=== PATIENT | female | born 1995 | race Asian ===

== ENCOUNTER 2017-11-21 21:44 | Emergency (ER) | payer BC, OTHER ==
--- NOTE | 2017-11-21 22:04 | EDM.PDOC ---
ED HPI GENERAL MEDICAL PROBLEM - General Stated Complaint: POSSIBLE MISCARRIAGE PER PT Time Seen by Provider: 11/21/17 22:02 - Related Data Allergies Allergy/AdvReac Type Severity Reaction Status Date / Time No Known Allergies Allergy Verified 11/21/17 21:54 Home Meds: Home Meds NK [No Known Home Meds] 11/21/17 [History] Course - Vital Signs Last Recorded V/S: Last Vital Signs Temp 36.7 C 11/21/17 21:45 Pulse 85 11/21/17 21:45 Resp 16 11/21/17 21:45 BP 121/70 11/21/17 21:45 Pulse Ox 100 11/21/17 21:45 Departure - Departure Condition: Good - Discharge Information Referrals: PCP,None [Primary Care Provider] -
--- NOTE | 2017-11-21 23:02 | EDM.PDOC ---
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, no dysuria, no lower abd pain went to [facility] in [place] 1w ago, urine test done, u/s done, no blood work, dx with preg at 6w gestation LMP 09-26-17 with usual 4d flow, no bleeding since until today, no BC in past yr , monthly menses, never missed previously, no breakthrough bleeding here with mother and friend has f/u apt at [facility] the wk of December, 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 apt with 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 substance abuse in [place] on 12/20 had pap test 3-4y ago that was neg no previous 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 Pain Score (Numeric/FACES): 7 - Related Data Allergies Allergy/AdvReac Type Severity Reaction Status Date / Time No Known Allergies Allergy Verified 11/21/17 21:54 Home Meds: Home Meds NK [No Known Home Meds] 11/21/17 [History] Past Medical History Other OB/BYN History: Social & Family History - Family History Family Medical History: Noncontributory - Tobacco Use Smoking Status *Q: Never Smoker - Caffeine Use Caffeine Use: Reports: Soda - Recreational Drug Use Recreational Drug Use: No ED ROS GENERAL - Review of Systems Review Of Systems: See Below Constitutional: Reports: No Symptoms HEENT: Reports: No Symptoms Respiratory: Reports: No Symptoms Cardiovascular: Reports: No Symptoms Endocrine: Reports: No Symptoms GI/Abdominal: Reports: Abdominal Pain : Reports: Other (blood on toilet paper) Musculoskeletal: Reports: No Symptoms Skin: Reports: No Symptoms Neurological: Reports: No Symptoms Psychiatric: Reports: No Symptoms Hematologic/Lymphatic: Reports: No Symptoms Immunologic: Reports: No Symptoms ED EXAM - Physical Exam Exam: See Below Exam Limited By: No Limitations General Appearance: Alert, WD/WN, No Apparent Distress Ears: Normal External Exam Nose: Normal Inspection, Normal Mucosa, No Blood Throat/Mouth: Normal Inspection, Normal Lips, Normal Teeth, Normal Gums, Normal Oropharynx, Normal Voice, No Airway Compromise Head: Atraumatic, Normocephalic Neck: Normal Inspection, Supple, Non-Tender, Full Range of Motion Respiratory/Chest: No Respiratory Distress, Lungs Clear, Normal Breath Sounds, No Accessory Muscle Use, Chest Non-Tender Cardiovascular: Regular Rate, Rhythm, No Edema, No Gallop, No JVD, No Murmur, No Rub GI/Abdominal Exam: Other (NT across lower abd, NT at flanks, 1+ tender at Kelley 's point with deep breath, slight tender at epigastric area, soft, ND, no HSM, no mass) Back Exam: Normal Inspection, Full Range of Motion. No: CVA Tenderness (R), CVA Tenderness (L) Extremities: Normal Inspection, Normal Range of Motion, Non-Tender, No Pedal Edema Neurological: Alert, Oriented, CN II-XII Intact, Normal Cognition, No Motor/ Sensory Deficits Psychiatric: Normal Affect, Normal Mood Skin Exam: Warm, Dry, Intact, Normal Color, No Rash Lymphatic: No Adenopathy Course - Vital Signs Last Recorded V/S: Last Vital Signs Temp 36.7 C 11/21/17 21:45 Pulse 85 11/21/17 21:45 Resp 16 11/21/17 21:45 BP 121/70 11/21/17 21:45 Pulse Ox 100 11/21/17 21:45 - Orders/Labs/Meds Orders: Active Orders 24 hr Category Date Time Status CHLAMYDIA,AND GC BY APTIMA Stat Lab 11/21/17 23:38 Ordered CULTURE GENITAL [RM] Stat Lab 11/21/17 23:38 Ordered Labs: Laboratory Tests 11/21/17 11/21/17 11/21/17 Range/Units 22:00 22:00 22:20 WBC 15.0 H (4.5-12.0) X10-3/uL RBC 4.75 (3.23-5.20) x10(6)uL Hgb 13.2 (11.5-15.5) g/dL Hct 39.4 (30.0-51.3) % MCV 83.0 (80-96) fL MCH 27.8 (27.7-33.6) pg MCHC 33.5 (32.2-35.4) g/dL RDW 13.3 (11.5-15.5) % Plt Count 445 H (125-369) X10(3)uL MPV 8.4 (7.4-10.4) fL Neut % (Auto) 77.9 (46-82) % Lymph % (Auto) 16.8 (13-37) % Desha % (Auto) 4.3 (4-12) % Eos % (Auto) 1 (1.0-5.0) % Baso % (Auto) 0 (0-2) % Neut # (Auto) 11.8 H (1.6-8.3) # Lymph # (Auto) 2.5 (0.6-5.0) # Desha # (Auto) 0.6 (0.0-1.3) # Eos # (Auto) 0.1 (0.0-0.8) # Baso # (Auto) 0.0 (0.0-0.2) # Sodium 140 (135-145) mmol/L Potassium 3.7 (3.5-5.3) mmol/L Chloride 104 (100-110) mmol/L Carbon Dioxide 26 (21-32) mmol/L BUN 8 (7-18) mg/dL Creatinine 0.7 (0.55-1.02) mg/dL Est Cr Clr Drug Dosing 109.78 mL/min Estimated GFR (MDRD) > 60 (>60) BUN/Creatinine Ratio 11.4 (9-20) Glucose 93 (80-116) mg/dL Calcium 8.9 (8.6-10.2) mg/dL Total Bilirubin < 0.1 L (0.1-1.3) mg/dL AST 15 (5-25) IU/L ALT 22 (12-36) U/L Alkaline Phosphatase 69 (56-112) IU/L C-Reactive Protein < 0.2 L (0.5-0.9) mg/dL Total Protein 7.1 (6.0-8.0) g/dL Albumin 3.9 (3.5-5.2) g/dL Globulin 3.2 g/dL Albumin/Globulin Ratio 1.2 Amylase 33 (25-115) U/L HCG, Quant (<5) mIU/mL Urine Color (YELLOW) Urine Appearance (CLEAR) Urine pH (5.0-6.5) Ur Specific [place] (1.010-1.025) Urine Protein (NEGATIVE) mg/dL Urine Glucose (UA) (NEGATIVE) mg/dL Urine Ketones (NEGATIVE) mg/dL Urine Occult Blood (NEGATIVE) Urine Nitrite (NEGATIVE) Urine Bilirubin (NEGATIVE) Urine Urobilinogen (NEGATIVE) mg/dL Ur Leukocyte Esterase (NEGATIVE) Urine RBC (0) Urine WBC (0) Ur Squamous Epith Cells (NS,R,O) Urine Bacteria (NS) 11/21/17 11/21/17 Range/Units 22:20 22:20 WBC (4.5-12.0) X10-3/uL RBC (3.23-5.20) x10(6)uL Hgb (11.5-15.5) g/dL Hct (30.0-51.3) % MCV (80-96) fL MCH (27.7-33.6) pg MCHC (32.2-35.4) g/dL RDW (11.5-15.5) % Plt Count (125-369) X10(3)uL MPV (7.4-10.4) fL Neut % (Auto) (46-82) % Lymph % (Auto) (13-37) % Desha % (Auto) (4-12) % Eos % (Auto) (1.0-5.0) % Baso % (Auto) (0-2) % Neut # (Auto) (1.6-8.3) # Lymph # (Auto) (0.6-5.0) # Desha # (Auto) (0.0-1.3) # Eos # (Auto) (0.0-0.8) # Baso # (Auto) (0.0-0.2) # Sodium (135-145) mmol/L Potassium (3.5-5.3) mmol/L Chloride (100-110) mmol/L Carbon Dioxide (21-32) mmol/L BUN (7-18) mg/dL Creatinine (0.55-1.02) mg/dL Est Cr Clr Drug Dosing mL/min Estimated GFR (MDRD) (>60) BUN/Creatinine Ratio (9-20) Glucose (80-116) mg/dL Calcium (8.6-10.2) mg/dL Total Bilirubin (0.1-1.3) mg/dL AST (5-25) IU/L ALT (12-36) U/L Alkaline Phosphatase (56-112) IU/L C-Reactive Protein (0.5-0.9) mg/dL Total Protein (6.0-8.0) g/dL Albumin (3.5-5.2) g/dL Globulin g/dL Albumin/Globulin Ratio Amylase (25-115) U/L HCG, Quant 50580 (<5) mIU/mL Urine Color Yellow (YELLOW) Urine Appearance Clear (CLEAR) Urine pH 5.0 (5.0-6.5) Ur Specific [place] 1.010 (1.010-1.025) Urine Protein Negative (NEGATIVE) mg/dL Urine Glucose (UA) Normal (NEGATIVE) mg/dL Urine Ketones Negative (NEGATIVE) mg/dL Urine Occult Blood Large H (NEGATIVE) Urine Nitrite Negative (NEGATIVE) Urine Bilirubin Negative (NEGATIVE) Urine Urobilinogen Normal (NEGATIVE) mg/dL Ur Leukocyte Esterase Negative (NEGATIVE) Urine RBC 5-10 (0) Urine WBC 0-5 (0) Ur Squamous Epith Cells Moderate H (NS,R,O) Urine Bacteria Few H (NS) - Re-Assessments/Exams Free Text/Narrative Re-Assessment/Exam: 11/22/17 00:04 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, small amount of RBC in vault, no pooling, just RBC tinged mucus, nl mucus without RBC and smooth normal nullip cx, no CMT, uterus 6w size without inc'd tender, nl ovaries b/l no clinical evidence of cervicitis or PID, GC/chlamydia swab obtained, cx general culture swab obtained as well cannot exclude biliary colic, will obtain a GB u/s tomorrow pt does pt care overnight from 11p to 7a, she is off work tonight and tomorrow night Departure - Departure Time of Disposition: 00:07 Disposition: Home, Self-Care 01 Clinical Impression: First trimester bleeding, Right upper quadrant pain - Discharge Information Instructions: Vaginal Bleeding During , First Trimester, Biliary Colic , Adult Referrals: PCP,None [Primary Care Provider] - Additional Instructions: Get adequate rest. Maintain fluids. There is no evidence of infection although cultures were obtained as a precaution. It is unlikely that you will miscarry although that is always a possibility. Return to hospital later today (Tue) for an ultrasound of your gallbladder. Someone will call you later this morning for a time. Use two tablespoons of a liquid antacid such as Maalox or Mylanta every 4 hours as needed. Avoid fatty foods. 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 Return to ED if you are feeling worse. May use acetaminophen 650 mg 1 tab every 4 hours as needed for discomfort. May soak in a warm tub for 10 minutes several times a day as needed. Call your Physician or Return to Emergency Department if: * Your condition worsens in any way. * You develop fever greater than 100.4. * You have vomitting that does not stop with medications. * You have pain that is not controlled with medications. - My Orders Last 24 Hours: My Active Orders 11/21/17 23:38 CHLAMYDIA,AND GC BY APTIMA Stat CULTURE GENITAL [RM] Stat - Assessment/Plan Last 24 Hours: My Active Orders 11/21/17 23:38 CHLAMYDIA,AND GC BY APTIMA Stat CULTURE GENITAL [RM] Stat
== END 2017-11-22 00:25 | disposition home or self-care (01) ==
LOC: FB.ED 21:44
DX: O20.9 Hemorrhage in early pregnancy, unspecified (principal); Z3A.01 Less than 8 weeks gestation of pregnancy
CPT/HCPCS: 36415; 76705; 80053; 81001; 82150; 84702; 85025; 86140; 87070; 87491; 87591; 99284